=== PATIENT | female | born 1985 | race Caucasian/White ===

== ENCOUNTER 2016-06-10 15:55 | Outpatient (CLI) | payer BC ==
--- NOTE | 2016-06-10 17:24 | DIAGNOSTIC IMAGING REPORT ---
PROCEDURE: US OB DETAILED ANATOMIC INDICATION: ANATOMY TECHNIQUE: Vazquez scale, color, and spectral Doppler images of the second trimester gravid uterus were obtained. COMPARISON: None. FINDINGS: A single living intrauterine is in breech presentation. There is regular cardiac activity at a rate of 136 beats per minute. The placenta is posterior and away from the internal cervical os. The cervix is closed measuring approximately 4.9 cm in length. The amniotic fluid volume is subjectively normal. Biparietal diameter 4.3 cm at 19 weeks and 1 day Head circumference 16.9 cm of 19 weeks and 4-day Abdominal circumference 14.7 cm at 20 weeks and 0 days Femur length 3.1 cm of 19 weeks and 3-day Head to abdominal circumference ratio and femur length to abdominal circumference ratios are normal. Estimated weight 309 g Composite gestational age 19 weeks and 4 days, ROLANDO 10/31/2016 There is mild bilateral pyelectasis with the right measuring 5.8 mm and the left measuring 4.7 mm. There was visualization of a number of normal structures including the intracranial contents, facial features, nuchal region, spine, four-chamber heart and outflow tracts to the extent that could be visualized, diaphragm, fluid-filled stomach, abdomen, urinary bladder, upper and lower extremities, and genitals. A three-vessel umbilical cord, normal and placental cord insertion sites were seen. IMPRESSION: 1. Single living intrauterine with a composite gestational age of 19 weeks and 4 days ROLANDO 10/31/2016 2. Symmetric and normal anatomy. 3. Bilateral pyelectasis, recommend repeat ultrasound in 4-6 weeks.
[2016-10-21] MEDS ORDERED: TUMS500 MG PO (11:41)
[2016-10-21] MEDS ORDERED: PRENATAL1 TAB PO (11:43)
== END 2016-06-10 23:00 ==
LOC: US SRH 15:55
DX: Z34.82 Encounter for supervision of other normal pregnancy, second trimester (principal); Z3A.19 19 weeks gestation of pregnancy

== ENCOUNTER 2016-08-20 08:26 | Outpatient (CLI) | payer BC ==
[2016-10-21] MEDS ORDERED: TUMS500 MG PO (11:41)
[2016-10-21] MEDS ORDERED: PRENATAL1 TAB PO (11:43)
== END 2016-08-20 23:00 ==
LOC: LAB SRH 08:26
DX: Z34.83 Encounter for supervision of other normal pregnancy, third trimester (principal)
CPT/HCPCS: 90039; 90074; 91162; 91163

== ENCOUNTER 2016-08-28 08:30 | Outpatient (CLI) | payer BC ==
[2016-10-21] MEDS ORDERED: TUMS500 MG PO (11:41)
[2016-10-21] MEDS ORDERED: PRENATAL1 TAB PO (11:43)
== END 2016-08-28 23:00 ==
LOC: LAB SRH 08:30
DX: O99.810 Abnormal glucose complicating pregnancy (principal)
CPT/HCPCS: 90074; 92652

== ENCOUNTER 2016-10-20 10:19 | Outpatient (CLI) | payer BC ==
[2016-10-21] MEDS ORDERED: TUMS500 MG PO (11:41)
[2016-10-21] MEDS ORDERED: PRENATAL1 TAB PO (11:43)
== END 2016-10-20 15:00 | disposition home or self-care (01) ==
LOC: OBC SRH 10:19 → OB SRH 10:24 → OBC SRH 15:00
PROC: 4A0HXCZ Measurement of Products of Conception, Cardiac Rate, External Approach (ICD-10-PCS; principal; 2016-10-20)
DX: O99.89 Other specified diseases and conditions complicating pregnancy, childbirth and the puerperium (principal); R51 Headache; R03.0 Elevated blood-pressure reading, without diagnosis of hypertension; Z3A.38 38 weeks gestation of pregnancy

== ENCOUNTER 2016-10-22 08:30 | Inpatient (IN) | payer BC ==
--- NOTE | 2016-10-15 18:31 | HISTORY AND PHYSICAL ---
ADMITTED: 10/23/2016 HISTORY OF PRESENT ILLNESS: Term , previous section, multiparity, desiring voluntary permanent sterilization for repeat scheduled for this next . No specific high risk issues. Macrosomia previously greater than 9 pounds. DNA analysis shows female infant, borderline nonimmune. The patient has been seen multiple times throughout her , no particular outstanding medical complications, for repeat scheduled tubal ligation discussed, either tubal ligation or bilateral salpingectomy discussed. MEDICAL/SURGICAL HISTORY: Menstrual history: Onset age 13, interval monthly, duration 5-6 days, moderate in character. OB history: Normal spontaneous vaginal delivery, 9 pounds 2 ounces, 2006, and 2009 section 9 pounds 14 ounces. Surgical history of x2. Medical history: None. MEDICATIONS: 1. None. ALLERGIES: 1. NONE. SOCIAL HISTORY: Smoking, drinking, drugs none. FAMILY HISTORY: Not significant. Two brothers, one sister, no problem. REVIEW OF SYSTEMS: Alert and oriented x3, no specific problems. Genitourinary: Purpose of the surgery. Cardiovascular: No shortness of breath or chest pain. Gastrointestinal: Daily bowel movements. PHYSICAL EXAMINATION: VITAL SIGNS: She is 5 feet, 3, inches, 201 pounds, 118/70, pulse and temperature normal. SKIN/HAIR/INTEGUMENT: Normal. HEENT: Grossly intact. BREASTS: Exam not done. LUNGS: Clear. HEART: Regular rate and rhythm. ABDOMEN: Term, height 38 cm. EXTREMITIES: No significant clubbing, cyanosis, erythema or edema. PELVIC: Exam done previously, deferred today. RECTAL: Exam done previously, deferred today. LAB/IMAGING: Pending. IMPRESSION: 1. Term with previous section. 2. Multiparity. PLAN: Repeat section and possible scar revision, tubal ligation in routine fashion or possible bilateral salpingectomy. Informed consent, risks, benefits, complications, alternatives of blood loss, need for transfusion, infection, damage to pelvic and nonpelvic organs given to patient, informed consent signed.
[2016-10-22] VITALS (9 sets, daily range): BP systolic 100–133; BP diastolic 55–68
[~2016-10-22] VITALS: Ht 160 cm; Wt 88.5 kg
[~2016-10-22 08:30] MED LIST: PRENATAL1 TAB PO; TUMS500 MG PO
--- NOTE | 2016-10-22 20:24 | OPERATIVE REPORT ---
DATE OF SURGERY: 10/22/2016 SURGEON: Clayton Coronado MD MATERIAL HANDLING SUPERVISOR: Gabe Palafox MD PREOPERATIVE DIAGNOSES: 1. Term 2. Previous section 3. Multiparity, desiring voluntary permanent sterilization, per request POSTOPERATIVE DIAGNOSES: 1. Term 2. Previous section 3. Multiparity, desiring voluntary permanent sterilization, per request 4. Delivered PROCEDURES PERFORMED: 1. Repeat low transverse uterine section 2. Bilateral tubal ligation via salpingectomy 3. Scar revision ANESTHESIA: Spinal; MISSY [place]. COMPLICATIONS: None. CONDITION: Good. ESTIMATED BLOOD LOSS: Less than normal, 400. FLUIDS: See anesthesia. No blood. DRAINS: See anesthesia. IMPLANTS/GRAFTS: No grafts. No implants. PATHOLOGY SPECIMEN: Placenta, scar tissues to disposal. SURGICAL FINDINGS: Normal. SURGICAL TECHNIQUE: The patient was prepped and draped in usual fashion with good level of anesthesia spinal in nature by MISSY. Time-out was performed. Then 2 g of Ancef had been given. The scalpel was used to make an incision above/below the previous scar. Bovie was then used to go down to the fascia. This was dissected laterally superiorly. The fascia was superiorly only and bluntly entered in the midline. Stretch procedure was done. Rafita self-retaining retractor was placed. The Bovie was used to develop the bladder flap and then this was slowly dissected to 2 mm of lower uterine segment. Clear fluid was reached. The hemostat was used to perforate the uterine lining and the bandage scissors carried incision laterally and superiorly. Infant was delivered with minimal pressure and quite active upon delivery. Cord was doubly clamped and cut. OB nurses and RT was present. The baby was quite active. Cord blood was collected. Pitocin had been started. The placenta was actively coaxed out of the uterus. The uterus remained in its normal anatomic position. Rings were placed on the main bleeding angles. Tape was used to remove any remaining membranes. The left angle was then tied and good hemostasis obtained. Running locking stitch from [id number] intermittent imbricating was used. At this point, the salpinx were identified. The fimbriae were elevated. The salpinx was removed all the way down to the utero-ovarian salpinx connection. Then 5-6 cm of salpinx was removed on either side. Chromic was used to tie out for hemostasis. Then Bovie was used to cut the tissue with good security and hemostasis. The gutters were minimally clean since not significant amount of blood had gone up to abdomen. At this point, the self-retaining retractor was removed. The [id number] was placed in the midline to help prevent diastasis recti and keep the abdominal contents in place. The second full length suture was used to close the fascia using 0 Polysorb running from angle- to-angle with good hemostasis. Then 3 cm of adipose tissue was reapproximated with 2-0 Polysorb. Good hemostasis was noted. Skin was reapproximated with jazmyne. Sponge, needle, tape and instrument count was correct x2. The patient tolerated the procedure well, went to recovery room in good condition.
--- NOTE | 2016-10-22 20:24 | OPERATIVE REPORT ---
DATE OF SURGERY: 10/22/2016 SURGEON: Clayton Coronado MD TIE MAN: Gabe Palafox MD PREOPERATIVE DIAGNOSES: 1. Term 2. Previous section 3. Multiparity, desiring voluntary permanent sterilization, per request POSTOPERATIVE DIAGNOSES: 1. Term 2. Previous section 3. Multiparity, desiring voluntary permanent sterilization, per request 4. Delivered PROCEDURES PERFORMED: 1. Repeat low transverse uterine section 2. Bilateral tubal ligation via salpingectomy 3. Scar revision ANESTHESIA: Spinal; MISSY [place]. COMPLICATIONS: None. CONDITION: Good. ESTIMATED BLOOD LOSS: Less than normal, 400. FLUIDS: See anesthesia. No blood. DRAINS: See anesthesia. IMPLANTS/GRAFTS: No grafts. No implants. PATHOLOGY SPECIMEN: Placenta, scar tissues to disposal. SURGICAL FINDINGS: Normal. SURGICAL TECHNIQUE: The patient was prepped and draped in usual fashion with good level of anesthesia spinal in nature by MISSY. Time-out was performed. Then 2 g of Ancef had been given. The scalpel was used to make an incision above/below the previous scar. Bovie was then used to go down to the fascia. This was dissected laterally superiorly. The fascia was superiorly only and bluntly entered in the midline. Stretch procedure was done. Rafita self-retaining retractor was placed. The Bovie was used to develop the bladder flap and then this was slowly dissected to 2 mm of lower uterine segment. Clear fluid was reached. The hemostat was used to perforate the uterine lining and the bandage scissors carried incision laterally and superiorly. Infant was delivered with minimal pressure and quite active upon delivery. Cord was doubly clamped and cut. OB nurses and RT was present. The baby was quite active. Cord blood was collected. Pitocin had been started. The placenta was actively coaxed out of the uterus. The uterus remained in its normal anatomic position. Rings were placed on the main bleeding angles. Tape was used to remove any remaining membranes. The left angle was then tied and good hemostasis obtained. Running locking stitch from [id number] intermittent imbricating was used. At this point, the salpinx were identified. The fimbriae were elevated. The salpinx was removed all the way down to the utero-ovarian salpinx connection. Then 5-6 cm of salpinx was removed on either side. Chromic was used to tie out for hemostasis. Then Bovie was used to cut the tissue with good security and hemostasis. The gutters were minimally clean since not significant amount of blood had gone up to abdomen. At this point, the self-retaining retractor was removed. The [id number] was placed in the midline to help prevent diastasis recti and keep the abdominal contents in place. The second full length suture was used to close the fascia using 0 Polysorb running from angle- to-angle with good hemostasis. Then 3 cm of adipose tissue was reapproximated with 2-0 Polysorb. Good hemostasis was noted. Skin was reapproximated with jazmyne. Sponge, needle, tape and instrument count was correct x2. The patient tolerated the procedure well, went to recovery room in good condition.
[2016-10-23 00:40] VITALS: BP 108/52
[2016-10-23 05:00] VITALS: BP 108/56
[2016-10-23 08:00] VITALS: BP 107/56
[2016-10-23 13:55] VITALS: BP 106/58
[2016-10-23 15:13] VITALS: BP 110/60
[2016-10-23 23:42] VITALS: BP 105/62
[2016-10-24 05:15] VITALS: BP 106/51
[2016-10-24 08:33] VITALS: BP 116/65
--- NOTE | 2016-10-24 11:26 | Discharge Summary ---
Discharge Summary Report Admit Date 10/22/16 Discharge Date 10/24/16 Admission Diagnosis PRIOR C/S AND DESIRED STERILIZATION Discharge Diagnosis S/P RC/S AND btl Hospital Course nL POSTOP COURSE. Abdomen Soft, No tenderness Discharge Instructions/Meds Routine post-op
[2016-10-24] MEDS ORDERED: PERCOCET1 TA1 PO (11:34)
--- NOTE | 2016-10-24 11:38 | Provider's Discharge Care Plan ---
Problem, Goal, Plan Problem List 1. Pain Goals: Improve function Instructions: Follow up as needed, Take meds as directed
--- NOTE | 2016-10-24 11:38 | Provider's Discharge Care Plan ---
Problem, Goal, Plan Problem List 1. Pain Goals: Improve function Instructions: Follow up as needed, Take meds as directed
== END 2016-10-24 12:15 | disposition home or self-care (01) | DRG 766 ==
LOC: U SRH 08:30 → OB SRH 09:40 → U SRH 12:30 → OB SRH 14:59 → U SRH 10-23 08:30 → OB SRH 10-24 12:15
PROVIDERS: ADMIT Obstetrics & Gynecology
PROC: 10D00Z1 Extraction of Products of Conception, Low, Open Approach (ICD-10-PCS; principal; 2016-10-22 12:30)
PROC: 0UB70ZZ Excision of Bilateral Fallopian Tubes, Open Approach (ICD-10-PCS; principal; 2016-10-22 12:30)
PROC: 3E0234Z Introduction of Serum, Toxoid and Vaccine into Muscle, Percutaneous Approach (ICD-10-PCS; 2016-10-23)
DX: O34.211 Maternal care for low transverse scar from previous cesarean delivery (principal); Z37.0 Single live birth; Z30.2 Encounter for sterilization; Z3A.38 38 weeks gestation of pregnancy; Z23 Encounter for immunization
CPT/HCPCS: 29255; 40010; 50002; 60001; 83411; 83426; 83526; 84038; 84043; 90001; 90074; 90155; 91004; 91162; 91163; 95059